=== PATIENT | female | born 1945 | race Caucasian/White ===

== ENCOUNTER 2017-04-27 03:19 | Emergency (ER) | payer OTHER ==
[~2017-04-27] VITALS: Ht 149.9 cm; Wt 64.9 kg
--- NOTE | 2017-04-27 03:40 | NUR ---
called for pt in wr, no response
--- NOTE | 2017-04-27 04:05 | NUR ---
To bed 2 a 72 yo female patient bibself c/o hematuria and dysuria x2 hours ago. vss. nad noted. nondiaphoretic. gowned. comfort measures rendered.
--- NOTE | 2017-04-27 04:07 | NUR ---
Dr Omer at bedside to evaluate patient.
[2017-04-27 04:30] LABS: APPEARANCE,URINE TURBID (CLEAR); BILIRUBIN,URINE NEGATIVE (NEGATIVE); BLOOD, URINE 3+ Ery/uL (NEGATIVE); COLOR,URINE RED (YELLOW); KETONES,URINE TRACE (NEGATIVE); LEUKOCYTE ESTERASE ,URINE TRACE (NEGATIVE); NITRITE, URINE NEGATIVE (NEGATIVE); PH,URINE 7.5 (5.0-8.0); PROTEIN,URINE 2+ mg/dl (NEGATIVE); UGLUCOSE NEGATIVE (NEGATIVE); UROBILINOGEN,URINE 0.2 EU/dL (0.2)
[2017-04-27 04:35] LABS: RBC,URINE TOO NUMEROUS TO COUN /HPF (0-2)
[2017-04-27 04:36] LABS: BACTERIA,URINE None seen /HPF (None Seen); SQUAMOUS EPITHELIAL CELL,UR Few /HPF (None Seen)
[2017-04-27] MEDS ORDERED: CEPHALEXIN MONOHYDRATE 500 MG CAPSULE PO ONE ×2 (04:47→05:00)
--- NOTE | 2017-04-27 04:57 | NUR ---
Patient discharged to home in stable condition. Written and verbal after care instructions given. Patient verbalizes understanding of instruction. Patient is ambulatory with steady gait, no further complaints. vss. nad noted on dc.
[2017-04-27 04:58] VITALS: BP 144/69
== END 2017-04-27 05:05 | disposition home or self-care (01) ==
LOC: ER 03:21
DX: R31.9 Hematuria, unspecified (principal); N30.90 Cystitis, unspecified without hematuria; E78.00 Pure hypercholesterolemia, unspecified; M54.5 Low back pain; G89.29 Other chronic pain
CPT/HCPCS: 81001; 99283; A4606; 81000-TC; Z7610

== ENCOUNTER 2024-11-19 04:43 | Emergency (ER) | payer OTHER ==
[~2024-11-19] VITALS: Ht 165.1 cm; Wt 66.2 kg
[~2024-11-19 04:43] MED LIST: LORA-259 PO; OLAN2.5T3 PO
[2024-11-19] MEDS ORDERED: oxyCODONE/APAP (5/325 MG) 1 UDTAB TABLET ONE (06:20)
[2024-11-19] MEDS ORDERED: KETOROLAC TROMETHAMINE INJ 30 MG/ML VIAL ONE (06:20)
[2024-11-19] MEDS: KETOROLAC TROMETHAMINE INJ 30 MG/ML VIAL IV ONE (06:23)
[2024-11-19] MEDS: oxyCODONE/APAP (5/325 MG) 1 UDTAB TABLET PO ONE (06:23)
[2024-11-19] MEDS ORDERED: KETO10TA2 PO (07:17)
[2024-11-19 09:44] VITALS: BP 133/74; TEMP 98; O2SAT 97
== END 2024-11-19 09:45 | disposition home or self-care (01) ==
LOC: ER 05:02
DX: M54.50 Low back pain, unspecified (principal); F41.9 Anxiety disorder, unspecified; E78.00 Pure hypercholesterolemia, unspecified; G89.29 Other chronic pain; M51.372 Other intervertebral disc degeneration, lumbosacral region with discogenic back pain and lower extremity pain; Z60.2 Problems related to living alone; Z79.899 Other long term (current) drug therapy
CPT/HCPCS: 99285; 96374; J1885